=== PATIENT | male | born 1990 | race American Indian/Alaskan Native ===

== ENCOUNTER 2018-06-11 00:39 | Emergency (ER) | payer OTHER ==
[2018-06-11 01:51] VITALS: BP 131/76
[2018-06-11] MEDS ORDERED: NORCO 5/325 PO ONE (02:38)
[2018-06-11] MEDS ORDERED: IBUPROFEN PO ONE (02:42)
--- NOTE | 2018-06-11 02:45 | Emergency Department Report ---
HPI - General Chief Complaint: Urogenital-Male Time Seen by Provider: 06/11/18 02:32 - HPI HPI: Room 5 The patient is a 27-year-old male presenting with a chief complaint right testicle pain and swelling. The patient states the past 3-4 days he's had pain and swelling of the right testicle. Patient denies any direct trauma. Patient denies dysuria or hematuria. Patient denies penile discharge. The patient gets his pain a score of 10/10 Location: Right testicle Duration: 3-4 days Quality: Pain Severity: 10/10 Modifying factors: [see above] Context: [see above] Mode of transportation: [not driving] ED Past Medical Hx - Past Medical History Previous Medical History?: Yes Hx Asthma: Yes Additional medical history: seasonal allergies - Surgical History Past Surgical History?: No - Family History Family history: no significant - Social History Smoking Status: Current Every Day Smoker (1/7 pack per day) Substance Use Type: None (denies illicit drug use) - Medications Home Medications: Home Medications Medication Instructions Recorded Confirmed Last Taken Type HYDROcodone/APAP 5-325 [[place] 1 - 2 each PO Q6HR PRN #14 tablet 06/11/18 Unknown Rx 5/325] Ibuprofen [Motrin 800 MG tab] 800 mg PO Q8HR PRN #20 tablet 06/11/18 Unknown Rx levoFLOXacin [Levaquin TAB] 500 mg PO QDAY #10 tablet 06/11/18 Unknown Rx ED Review of Systems ROS: Stated complaint: SCROTUM SWOLLEN Other details as noted in HPI Constitutional: no symptoms reported Eyes: denies: eye pain ENT: denies: throat pain Respiratory: no symptoms reported Cardiovascular: denies: chest pain Endocrine: no symptoms reported Genitourinary: testicular pain. denies: dysuria, discharge Neurological: denies: headache Physical Exam - Physical Exam Vital Signs: Vital Signs 06/11/18 06/11/18 01:50 01:54 Temperature 98.6 F 98.6 F Pulse Rate 73 71 Respiratory 18 18 Rate Blood Pressure 131/76 131/76 O2 Sat by Pulse 98 99 Oximetry Physical Exam: GENERAL: The patient is well-developed well-nourished male lying on stretcher not appearing to be in acute distress. [] HEENT: Normocephalic. Atraumatic. Extraocular motions are intact. Patient has moist mucous membranes. NECK: Supple. Trachea midline CHEST/LUNGS: There is no respiratory distress noted. ABDOMEN: There is no abdominal distention. SKIN: There is no rash. There is no diaphoresis. NEURO: The patient is awake, alert, and oriented. The patient is cooperative. The patient has normal speech MUSCULOSKELETAL: There is no evidence of acute injury. GENITOURINARY: There is moderate edema of the right testicle. Positive cremasteric reflex on the right ED Course Vital Signs 06/11/18 06/11/18 01:50 01:54 Temperature 98.6 F 98.6 F Pulse Rate 73 71 Respiratory 18 18 Rate Blood Pressure 131/76 131/76 O2 Sat by Pulse 98 99 Oximetry ED Medical Decision Making - Lab Data Laboratory Tests 06/11/18 Unknown Urine Color [place] Urine Turbidity Clear Urine pH 5.0 Ur Specific [place] 1.031 H Urine Protein 30 mg/dl Urine Glucose (UA) Neg Urine Ketones Neg Urine Blood Neg Urine Nitrite Neg Urine Bilirubin Neg Urine Urobilinogen 4.0 Ur Leukocyte Esterase Tr Urine WBC (Auto) 7.0 H Urine RBC (Auto) 1.0 U Epithel Cells (Auto) 2.0 Urine Mucus 3+ - Radiology Data Radiology results: report reviewed (testicular ultrasound), image reviewed (testicular ultrasound) [address] [address] Ultrasound Report Signed Patient: CHRISTINA NARANJO MR#: [id number] : 1990 Acct:[id number] Age/Sex: 27 / M ADM Date: 06/11/18 Loc: ED Attending Dr: Ordering Physician: TRINITY FRANCISCO NP Date of Service: 06/11/18 Procedure(s): US testicular doppler comp Accession Number(s): [id number] cc: TRINITY FRANCISCO NP PROCEDURE: US TESTICULAR DOPPLER COMP TECHNIQUE: Real-time velázquez-scale and color flow Doppler sonography in multiple planes of the scrotum, testicles, and epididymis was performed. Velocity spectral waveform analysis and color Doppler imaging of the arterial inflow and venous outflow of the testicles was performed with image documentation. HISTORY: Acute testicular pain and swelling COMPARISONS: None . FINDINGS: RIGHT TESTICLE: Size: 4 x 2.2 x 3.1 cm . Appearance: Normal size and echotexture . Arterial blood flow: Normal spectral waveforms, flow velocities and color flow images.. Venous blood flow: Normal spectral waveforms and color flow images. Right epididymis: Enlarged and hyperemic. . Hydrocele: There is a right hydrocele. . LEFT TESTICLE Size: 3.6 x 1.9 x 2.6 cm . Appearance: Normal size and echotexture . Arterial blood flow: Normal spectral waveforms, flow velocities and color flow images.. Venous blood flow: Normal spectral waveforms and color flow images. Left epididymis: Normal size and echotexture . Hydrocele: None . IMPRESSION: Right epididymitis with right-sided hydrocele. There is no orchitis, torsion or mass. . This document is electronically signed by Darrick Ayala MD., June 11 2018 03:56:26 AM ET Transcribed By: CO Dictated By: DARRICK AYALA MD Electronically Authenticated By: DARRICK AYALA MD Signed Date/Time: 06/11/18358 DD/ 1 TD/TT: 06/11/18351 - Differential Diagnosis hydrocele, epididymitis, testicular torsion, Critical care attestation.: If time is entered above; I have spent that time in minutes in the direct care of this critically ill patient, excluding procedure time. ED Disposition Clinical Impression: Right testicular pain, Epididymitis Disposition: - TO HOME OR SELFCARE Is pt being admited?: No Does the pt Need Aspirin: No Condition: Stable Instructions: Epididymitis (ED) Additional Instructions: Return to the emergency department immediately should you develop worsening symptoms, fever, inability to tolerate food or liquid or any other concerns. Prescriptions: levoFLOXacin [Levaquin TAB] 500 mg PO QDAY #10 tablet Ibuprofen [Motrin 800 MG tab] 800 mg PO Q8HR PRN #20 tablet PRN Reason: Pain, Moderate (4-6) HYDROcodone/APAP 5-325 [[place] 5/325] 1 - 2 each PO Q6HR PRN #14 tablet PRN Reason: Pain Referrals: MAYA RAZO MD [Primary Care Provider] - 3-5 Days LASHANDA CARMONA MD [Staff Physician] - 3-5 Days (Dr. Carmona is a urologist. Please follow up with him for further evaluation) Forms: STI Treatment and Prevention Time of Disposition: 05:16
--- NOTE | 2018-06-11 03:58 | Ultrasound Report ---
PROCEDURE: US TESTICULAR DOPPLER COMP TECHNIQUE: Real-time velázquez-scale and color flow Doppler sonography in multiple planes of the scrotum, testicles, and epididymis was performed. Velocity spectral waveform analysis and color Doppler imagi ng of the arterial inflow and venous outflow of the testicles was performed with image documentation. HISTORY: Acute testicular pain and swelling COMPARISONS: None . FINDINGS: RIGHT TESTICLE: Size: 4 x 2.2 x 3.1 cm . Appearance: Normal size and echotexture . Arterial blood flow: Normal spectral waveforms, flow velocities and color flow images.. Venous blood flow: Normal spectral waveforms and color flow images. Right epididymis: Enlarged and hyperemic. . Hydrocele: There is a right hydrocele. . LEFT TESTICLE Size: 3.6 x 1.9 x 2.6 cm . Appearance: Normal size and echotexture . Arterial blood flow: Normal spectral waveforms, flow velocities and color flow images.. Venous blood flow: Normal spectral waveforms and color flow images. Left epididymis: Normal size and echotexture . Hydrocele: None . IMPRESSION: Right epididymitis with right-sided hydrocele. There is no orchitis, torsion or mass. . This document is electronically signed by Darrick Heath MD., June 11 2018 03:56:26 AM ET
[2018-06-11] MEDS ORDERED: ROCEPHIN IM ONE (04:21)
[2018-06-11] MEDS ORDERED: ZITHROMAX PO ONE (04:21)
[2018-06-11] MEDS ORDERED: XYLOCAINE 1% MPF 5 mL INFILTRATI ONE (04:21)
[2018-06-11 05:05] LABS: Bilirubin,Urine NEG (Negative); Blood,Urine NEG (Negative); Color,Urine Amber (Yellow); Mucus,Urine 3+ /HPF
[2018-06-11] MEDS ORDERED: XYLOCAINE 1% 20 mL ONE (05:27)
== END 2018-06-11 06:14 | disposition home or self-care (01) ==
LOC: ED 00:39
DX: N45.1 Epididymitis (principal); J45.909 Unspecified asthma, uncomplicated; F17.200 Nicotine dependence, unspecified, uncomplicated
CPT/HCPCS: 81001; 87086; 93975; 96372; 99284; J0696

== ENCOUNTER 2018-12-05 13:32 | Emergency (ER) | payer OTHER ==
--- NOTE | 2018-12-05 13:38 | Emergency Department Report ---
Blank Doc - Documentation Documentation: 28-year-old male that presents with right eye pain after hitting eye on table. This initial assessment/diagnostic orders/clinical plan/treatment(s) is/are subject to change based on patient's health status, clinical progression and re- assessment by fellow clinical providers in the ED. Further treatment and workup at subsequent clinical providers discretion. Patient/guardians urged not to elope from the ED as their condition may be serious if not clinically assessed and managed. Initial orders include: 1- Patient sent to [facility] for further evaluation and treatment 2- lane lamp needed
[2018-12-05] MEDS ORDERED: TETRACAINE 0.5% OU ONE (14:21)
[2018-12-05] MEDS ORDERED: FUL-GLO OP ONE (14:21)
[2018-12-05] MEDS ORDERED: BOOSTRIX IM ONE (14:39)
--- NOTE | 2018-12-05 14:43 | Emergency Department Report ---
ED Eye Problem HPI - General Chief complaint: Eye Problems Stated complaint: RT EYE INJURY/MIGRANES Time Seen by Provider: 12/05/18 13:37 Source: patient Mode of arrival: Ambulatory Limitations: No Limitations - History of Present Illness Initial comments: 28-year-old male presents with eye injury that occurred to days ago. Patient was bending over to tie his shoe and struck his right eye on the table. Patient complains of moderate eye pain causing to have a right-sided headache. He is wearing an eye patch. Positive photophobia and blurred vision reported. Patient does not wear glasses or contact lenses. - Related Data Previous Rx's Medication Instructions Recorded Last Taken Type levoFLOXacin [Levaquin TAB] 500 mg PO QDAY #10 tablet 06/11/18 Unknown Rx Erythromycin [Erythromycin Ophth 1 applicatio OD ONCE 5 Days tube 12/05/18 Unknown Rx Oint] HYDROcodone/APAP 5-325 [[place] 1 - 2 each PO Q6HR PRN #14 tablet 12/05/18 Unknown Rx 5-325 mg TAB] Ibuprofen [Motrin 800 MG tab] 800 mg PO Q8HR PRN #20 tablet 12/05/18 Unknown Rx traMADol [Ultram 50 MG tab] 50 mg PO Q6HR PRN #14 tablet 12/05/18 Unknown Rx Allergies Allergy/AdvReac Type Severity Reaction Status Date / Time No Known Allergies Allergy Verified 06/11/18 00:49 ED Review of Systems ROS: Stated complaint: RT EYE INJURY/MIGRANES Other details as noted in HPI Comment: All other systems reviewed and negative ED Past Medical Hx - Past Medical History Hx Asthma: Yes Additional medical history: seasonal allergies - Surgical History Past Surgical History?: No - Social History Smoking Status: Current Every Day Smoker Substance Use Type: None - Medications Home Medications: Home Medications Medication Instructions Recorded Confirmed Last Taken Type levoFLOXacin [Levaquin TAB] 500 mg PO QDAY #10 tablet 06/11/18 Unknown Rx Erythromycin [Erythromycin Ophth 1 applicatio OD ONCE 5 Days tube 12/05/18 Unknown Rx Oint] HYDROcodone/APAP 5-325 [[place] 1 - 2 each PO Q6HR PRN #14 tablet 12/05/18 Unknown Rx 5-325 mg TAB] Ibuprofen [Motrin 800 MG tab] 800 mg PO Q8HR PRN #20 tablet 12/05/18 Unknown Rx traMADol [Ultram 50 MG tab] 50 mg PO Q6HR PRN #14 tablet 12/05/18 Unknown Rx ED Physical Exam - General Limitations: No Limitations - Other Other exam information: Gen.: No acute distress Head: Atraumatic Eyes: Right eye: with diffuse conjunctiva injection. Focal subconjunctival hemorrhagic area at the medial. Area of the conjunctiva. No fluorescein uptake. Extraocular movements intact. Pupils equal reactive to light. Photophobia noted. Clear watery discharge. Mouth decrease in pain with tetracaine. No Bc sign. Visual acuity R: 20/50 L:20/13 Bilateral: 20/13 ENT: Moist mucous membranes Neck: Normal appearance, no posterior midline tenderness, no meningismus Chest: Clear to auscultation bilaterally Cardiovascular: Regular rate and rhythm Abdomen: Normal appearance, soft, nontender, no rebound or guarding, normal bowel sounds Back: Normal appearance, nontender Extremity: Full range of motion, normal appearance Neuro: Alert, clear speech, no focal motor or sensory deficit Psychiatric: Appropriate Skin: No rash ED Course Vital Signs 12/05/18 13:38 Temperature 98.3 F Pulse Rate 65 Respiratory 16 Rate Blood Pressure 108/38 [Left] O2 Sat by Pulse 97 Oximetry ED Medical Decision Making - Medical Decision Making Plan abrasion identified on exam. Patient empirically covered with topical antibiotic and cycloplegic which traumatic iritis. Patient received homatropine drop in the right eye prior to discharge which should help with ciliary spasm up to 3 days. - Differential Diagnosis traumatic iritis, globe rupture, corneal abrasion Critical Care Time: No Critical care attestation.: If time is entered above; I have spent that time in minutes in the direct care of this critically ill patient, excluding procedure time. ED Disposition Clinical Impression: Traumatic iritis Disposition: [id number]-01 TO HOME OR SELFCARE Is pt being admited?: No Does the pt Need Aspirin: No Condition: Stable Instructions: Iritis (ED) Additional Instructions: Take the medication as prescribed. Follow-up with your doctor or with the doctor/clinic provided. Return if symptoms worsen as indicated by your discharge instructions. Prescriptions: Erythromycin [Erythromycin Ophth Oint] 1 applicatio OD ONCE 5 Days tube Ibuprofen [Motrin 800 MG tab] 800 mg PO Q8HR PRN #20 tablet PRN Reason: Pain, Moderate (4-6) HYDROcodone/APAP 5-325 [[place] 5-325 mg TAB] 1 - 2 each PO Q6HR PRN #14 tablet PRN Reason: Pain traMADol [Ultram 50 MG tab] 50 mg PO Q6HR PRN #14 tablet PRN Reason: Pain Referrals: PRIMARY CARE, [Primary Care Provider] - 3-5 Days IRA SILVA MD [Staff Physician] - 3-5 Days (eye doctor ) ANDREA WISEMAN MD [Staff Physician] - 3-5 Days (eye doctor ) Time of Disposition: 16:48
[2018-12-05] MEDS ORDERED: ISOPTO HOMATROPINE OD ONE (15:53)
[2018-12-05 17:01] VITALS: BP 110/60
== END 2018-12-05 17:00 | disposition home or self-care (01) ==
LOC: ED 13:32
DX: H20.9 Unspecified iridocyclitis (principal); J45.909 Unspecified asthma, uncomplicated; F17.200 Nicotine dependence, unspecified, uncomplicated; Z79.899 Other long term (current) drug therapy
CPT/HCPCS: 90471; 90715